=== PATIENT | male | born 2000 | race Hispanic/Latino ===

== ENCOUNTER 2020-11-12 13:47 | Emergency (ER) | payer OTHER ==
[2020-11-12] MEDS ORDERED: Ketorolac Tromethamine 30 MG/ML VIAL ONE (15:13)
[2020-11-12] MEDS ORDERED: Acetaminophen 500 MG TAB ONE (15:13)
[2020-11-12 15:50] LABS: Bacteria/HPF None Seen HPF (None Seen); Bilirubin Negative (Negative); Blood, Urine Negative (Negative); Clarity Clear (Clear); Glucose, Urine (Dipstick) Normal (Negative); Ketone, Urine Negative (Negative); Leukocyte Negative Leu/uL (Negative); Nitrite Negative (Negative); Protein, Urine (Dipstick) 30 mg/dL (Neg-Trace); RBC/HPF None Seen HPF (0-3); Specific Gravity, Urine 1.028 (1.002-1.036); Squamous Epithelial 0-3 HPF (0-3); Urobilinogen Normal mg/dL (Less than 2); WBC/HPF 0-3 HPF (0-3)
== END 2020-11-12 16:10 | disposition home or self-care (01) ==
LOC: ERS 13:47
DX: N50.811 Right testicular pain (principal); G89.29 Other chronic pain
CPT/HCPCS: 76870; 81003; 81015; 87086; 93976; 96372; J1885

== ENCOUNTER 2020-11-24 12:58 | Outpatient (CLI) | payer OTHER | END 2020-11-24 12:59 | disposition home or self-care (01) | LOC: MRI 12:58 | DX: M54.16 Radiculopathy, lumbar region (principal); R10.2 Pelvic and perineal pain; N50.812 Left testicular pain | CPT/HCPCS: 72148 ==